=== PATIENT | male | born 1955 | race Two or more races ===

== ENCOUNTER 2019-01-25 11:15 | Inpatient (IN) | payer OTHER ==
[~2019-01-25] VITALS: Ht 172.7 cm; Wt 87.1 kg
[~2019-01-25 11:15] MED LIST: AMBIEN10 MG PO; FORTAMET500 MG PO; LIPITO PO; NORVASC10 MG PO; OMEPRAZOLE20 MG PO; PLAVIX75 MG PO
[2019-01-26] MEDS ORDERED: LIPITOR PO (14:11)
[2019-01-31] MEDS ORDERED: ATORVASTATIN CA10 MG PO (14:01)
== END 2019-02-03 17:06 | disposition home or self-care (01) | DRG 330 ==
LOC: SURG 01-31 10:39 → O/R 01-31 10:39 → SURG 01-31 11:15
PROVIDERS: ADMIT Colon & Rectal Surgery
PROC: 0DQ84ZZ Repair Small Intestine, Percutaneous Endoscopic Approach (ICD-10-PCS; 2019-01-31)
PROC: 0DQE4ZZ Repair Large Intestine, Percutaneous Endoscopic Approach (ICD-10-PCS; 2019-01-31)
PROC: 0DJD8ZZ Inspection of Lower Intestinal Tract, Via Natural or Artificial Opening Endoscopic (ICD-10-PCS; 2019-01-31)
PROC: 0DTN4ZZ Resection of Sigmoid Colon, Percutaneous Endoscopic Approach (ICD-10-PCS; principal; 2019-01-31 17:45)
DX: K57.20 Diverticulitis of large intestine with perforation and abscess without bleeding (principal); K94.09 Other complications of colostomy; K91.72 Accidental puncture and laceration of a digestive system organ or structure during other procedure; K66.0 Peritoneal adhesions (postprocedural) (postinfection)

== ENCOUNTER → 2019-01-25 14:00 | Outpatient (CLI) | payer OTHER ==
[~2019-01-25 14:00] MED LIST changes: +ATORVASTATIN CA10 MG PO; +LIPITOR PO
== END | disposition home or self-care (01) ==
LOC: RAD 14:00 → LAB 14:00
DX: Z01.811 Encounter for preprocedural respiratory examination (principal); I10 Essential (primary) hypertension; Z01.812 Encounter for preprocedural laboratory examination

== ENCOUNTER 2019-01-26 09:38 | Outpatient (CLI) | payer OTHER ==
[~2019-01-26 09:38] MED LIST changes: -ATORVASTATIN CA10 MG PO; -LIPITOR PO
[2019-01-26] MEDS ORDERED: LIPITOR PO (14:11)
== END 2019-01-26 15:45 | disposition home or self-care (01) ==
LOC: EKG 09:38
DX: I10 Essential (primary) hypertension (principal)